=== PATIENT | female | born 1940 | race Caucasian/White ===

== ENCOUNTER 2022-05-16 07:36 | Inpatient (IN) | payer MEDICARE ==
[2022-05-15 14:03] VITALS: BMI 24.3
[2022-05-16] MEDS ORDERED: Tranexamic Acid 1,000 MG/10 ML VIAL ONE (08:15)
[2022-05-16] MEDS ORDERED: Levofloxacin 500 mg/D5W 100 ml Premix Bag ONE (08:15)
[2022-05-16] MEDS ORDERED: Sodium Chloride 0.9% 100 ML ONE (08:15)
[2022-05-16] MEDS ORDERED: Vancomycin 1 GM/200 ML BAG ONE (08:16)
[2022-05-16] MEDS ORDERED: Midazolam HCl 2 mg/2 ml Vial ONE (08:51)
[2022-05-16] MEDS ORDERED: Fentanyl 100 MCG/2 ML VIAL ONE (08:51)
[2022-05-16] MEDS ORDERED: Scopolamine 1.5 mg/72 hour Patch ONE (09:00)
[2022-05-16] MEDS ORDERED: Bupivacaine PF 0.5% 30 ML VIAL ONE (09:31)
[2022-05-16 09:38] LABS: PTT 29.2 sec (22.9-36.1); Prothrombin Time 12.8 sec (12.0-14.7)
[2022-05-16] MEDS ORDERED: fentaNYL Citrate/PF 100 MCG/2 ML SYRINGE ONE (09:39)
[2022-05-16] MEDS ORDERED: Ropivacaine 0.5% HCl/PF (150 MG/30 ML VIAL) ONE (09:41)
[2022-05-16] MEDS ORDERED: Propofol 500 MG/50 ML VIAL ONE (09:41)
[2022-05-16] MEDS ORDERED: Zolpidem Tartrate 5 MG TAB PO PRN ×2 (09:42→10:45)
[2022-05-16] MEDS ORDERED: Ondansetron PF 4 MG/2 ML Vial IVP PRN ×2 (09:42→10:45)
[2022-05-16] MEDS ORDERED: traMADol HCl 50 MG TAB PO PRN ×4 (09:42→10:45)
[2022-05-16] MEDS ORDERED: diphenhydrAMINE 25 MG CAP PO PRN (09:42)
[2022-05-16] MEDS ORDERED: Promethazine HCl 25 MG/ML VIAL IM PRN ×2 (09:42→10:45)
[2022-05-16] MEDS ORDERED: Acetaminophen 325 MG TAB PO PRN (09:42)
[2022-05-16] MEDS ORDERED: Acetaminophen ER (8hr) 650 MG TAB PO PRN (09:45)
[2022-05-16] MEDS ORDERED: Phenylephrine 10 MG/ML VIAL ONE (10:05)
[2022-05-16] MEDS ORDERED: ePHEDrine 50 MG/ML VIAL ONE (10:05)
[2022-05-16] MEDS ORDERED: Lidocaine 1.5% w/Epi 1:200K 30 ML VIAL (Epid Use) ONE (10:05)
[2022-05-16] MEDS ORDERED: Ondansetron PF 4 MG/2 ML Vial ONE (10:05)
[2022-05-16] MEDS ORDERED: BUPIVACAINE 0.5% EPIDURAL SCH (10:45)
[2022-05-16] MEDS ORDERED: SODIUM CHLORIDE 0.9% EPIDURAL SCH (10:45)
[2022-05-16] MEDS ORDERED: Naloxone HCl 0.4 mg/ml Vial IVP PRN (10:45)
[2022-05-16] MEDS ORDERED: diphenhydrAMINE 50 MG/ML VIAL IM PRN (10:45)
[2022-05-16] MEDS ORDERED: diphenhydrAMINE 50 MG/ML VIAL IVP PRN (10:45)
[2022-05-16] MEDS ORDERED: Moisturizing Cream (Eucerin) 113 GM JAR TOP PRN (10:45)
[2022-05-16] MEDS ORDERED: Bupivacaine 0.25% 10 ML VIAL EPIDURAL PRN (10:45)
[2022-05-16] MEDS ORDERED: Naloxone HCl 0.4 mg/ml Vial IV PRN (10:45)
[2022-05-16] MEDS ORDERED: Promethazine HCl 25 MG SUPP PR PRN (10:45)
[2022-05-16] MEDS: Acetaminophen 500 MG TAB PO PRN (14:10)
[2022-05-16] MEDS ORDERED: Bupivacaine 0.25% HCL 30 ML VIAL ONE (14:45)
[2022-05-16] MEDS ORDERED: Morphine 4 MG/ML VIAL ONE (14:52)
[2022-05-16] MEDS ORDERED: Morphine 2 MG/ML VIAL SLOW IVP SCH (14:52)
[2022-05-16] MEDS ORDERED: Morphine 2 MG/ML VIAL SLOW IVP PRN (14:54)
[2022-05-16] MEDS: Sodium Chloride 0.9% 1,000 ML IV SCH (16:17)
[2022-05-16] MEDS: tiZANidine HCl 4 MG TAB PO SCH (17:20)
[2022-05-16] MEDS: Morphine Sulfate 100 MG in Dextrose 5% in Water 98 ML IV SCH (18:25)
[2022-05-16] MEDS ORDERED: Vancomycin 1 GM in Premix Bag 1 BAG IVPB SCH (20:00)
[2022-05-16] MEDS ORDERED: HYDROCHLOROTHIAZIDE PO SCH (21:00)
[2022-05-16] MEDS ORDERED: Non-Formulary Item 1 EACH (Lansoprazole [Prevacid] 15 MG Cap) PO SCH (21:00)
[2022-05-16] MEDS ORDERED: [UNRECOGNIZED DRUG - OTHER] PO SCH (21:00)
[2022-05-16] MEDS ORDERED: LISINOPRIL PO SCH (21:00)
[2022-05-16] MEDS: Lisinopril/Hydrochlorothiazide 20 mg/12.5 mg Tablet PO SCH (21:19)
[2022-05-16] MEDS: Senokot S 8.6-50 MG TAB PO SCH (21:23)
[2022-05-16] MEDS: Ferrous Gluconate 324 MG TAB PO SCH (21:24)
[2022-05-16] MEDS: Estradiol 1 MG TAB PO SCH (21:27)
[2022-05-16] MEDS: Aspirin 81 mg Enteric Coated Tablet PO SCH (21:29)
[2022-05-17] MEDS: tiZANidine HCl 4 MG TAB PO SCH ×5 (01:13→22:58)
[2022-05-17] MEDS: Sodium Chloride 0.9% 1,000 ML IV SCH ×4 (02:28→23:07)
[2022-05-17 05:24] LABS: Hemoglobin 11.6 g/dL (12.0-16.0); Mean Corpuscular HGB CONC 32.8 g/dL (32.0-36.0); Mean Corpuscular Hemoglobin 31.2 pg (27.0-31.0); Mean Corpuscular Volume 95.1 fL (78.0-98.0); Mean Platelet Volume 8.4 fL (7.4-10.4); Platelet Count 221 thou/uL (130-400); RBC Distribution Width 11.9 % (11.5-14.5); Red Blood Cell (RBC) Count 3.72 mill/uL (4.20-5.40); White Blood Cell (WBC) Count 8.5 thou/uL (4.8-10.8)
[2022-05-17] MEDS ORDERED: Cetirizine HCl 10 MG TAB PO SCH (09:00)
[2022-05-17] MEDS ORDERED: Cholecalciferol 1,000 UNITS (25 MCG) TAB PO SCH (09:00)
[2022-05-17] MEDS: Aspirin 81 mg Enteric Coated Tablet PO SCH ×2 (09:40→21:14)
[2022-05-17] MEDS: Levothyroxine Sodium 100 MCG TAB PO SCH (09:40)
[2022-05-17] MEDS: Loratadine 10 MG TAB PO SCH (09:40)
[2022-05-17] MEDS: Senokot S 8.6-50 MG TAB PO SCH ×3 (09:40→22:57)
[2022-05-17] MEDS: Cholecalciferol 1,000 UNITS (25 MCG) TAB PO SCH (09:40)
[2022-05-17] MEDS: Lisinopril/Hydrochlorothiazide 20 mg/12.5 mg Tablet PO SCH ×2 (09:40→21:14)
[2022-05-17] MEDS: Multivitamin W/ Minerals 1 TAB PO SCH (09:41)
[2022-05-17] MEDS: Ferrous Gluconate 324 MG TAB PO SCH ×2 (09:41→21:16)
[2022-05-17] MEDS: Liothyronine Sodium 25 MCG TAB PO SCH (10:02)
[2022-05-17] MEDS: Estradiol 1 MG TAB PO SCH (21:12)
[2022-05-17] MEDS: diphenhydrAMINE 25 MG CAP PO PRN (22:59)
[2022-05-18] MEDS: tiZANidine HCl 4 MG TAB PO SCH ×3 (06:01→18:15)
[2022-05-18] MEDS: Lisinopril/Hydrochlorothiazide 20 mg/12.5 mg Tablet PO SCH ×2 (10:27→21:04)
[2022-05-18] MEDS: Cholecalciferol 1,000 UNITS (25 MCG) TAB PO SCH (10:27)
[2022-05-18] MEDS: Senokot S 8.6-50 MG TAB PO SCH ×2 (10:27→21:03)
[2022-05-18] MEDS: Multivitamin W/ Minerals 1 TAB PO SCH (10:27)
[2022-05-18] MEDS: Levothyroxine Sodium 100 MCG TAB PO SCH (10:28)
[2022-05-18] MEDS: Ferrous Gluconate 324 MG TAB PO SCH ×2 (10:28→21:03)
[2022-05-18] MEDS: Aspirin 81 mg Enteric Coated Tablet PO SCH ×2 (10:28→21:04)
[2022-05-18] MEDS: Loratadine 10 MG TAB PO SCH (10:28)
[2022-05-18] MEDS ORDERED: Ketorolac Tromethamine 30 MG/ML VIAL ONE (14:59)
[2022-05-18] MEDS: Liothyronine Sodium 25 MCG TAB PO SCH (16:01)
[2022-05-18] MEDS: Morphine Sulfate 100 MG in Dextrose 5% in Water 98 ML IV SCH (16:02)
[2022-05-18] MEDS: Sodium Chloride 0.9% 1,000 ML IV SCH ×2 (16:02→21:45)
[2022-05-18] MEDS: Estradiol 1 MG TAB PO SCH (21:04)
[2022-05-19] MEDS: tiZANidine HCl 4 MG TAB PO SCH ×4 (00:30→18:09)
[2022-05-19] MEDS: Sodium Chloride 0.9% 1,000 ML IV SCH ×2 (06:27→18:11)
[2022-05-19] MEDS: Multivitamin W/ Minerals 1 TAB PO SCH (09:47)
[2022-05-19] MEDS: Lisinopril/Hydrochlorothiazide 20 mg/12.5 mg Tablet PO SCH ×2 (09:47→20:47)
[2022-05-19] MEDS: Senokot S 8.6-50 MG TAB PO SCH ×2 (09:47→20:49)
[2022-05-19] MEDS: Loratadine 10 MG TAB PO SCH (09:47)
[2022-05-19] MEDS: Levothyroxine Sodium 100 MCG TAB PO SCH (09:47)
[2022-05-19] MEDS: Ferrous Gluconate 324 MG TAB PO SCH ×2 (09:48→20:50)
[2022-05-19] MEDS: Aspirin 81 mg Enteric Coated Tablet PO SCH ×2 (09:48→20:50)
[2022-05-19] MEDS: Cholecalciferol 1,000 UNITS (25 MCG) TAB PO SCH (09:48)
[2022-05-19] MEDS: Liothyronine Sodium 25 MCG TAB PO SCH (09:49)
[2022-05-19] MEDS ORDERED: Sodium Chloride 0.9% 500 ML IV SCH (16:45)
[2022-05-19] MEDS: fentaNYL 50 mcg/hour Patch TD SCH (18:09)
[2022-05-19] MEDS ORDERED: Simethicone Chewable 80 MG TAB PO PRN (20:35)
[2022-05-19] MEDS: Estradiol 1 MG TAB PO SCH (20:49)
[2022-05-20] MEDS: tiZANidine HCl 4 MG TAB PO SCH ×3 (00:14→14:30)
[2022-05-20] MEDS: Acetaminophen 500 MG TAB PO PRN ×3 (01:58→22:40)
[2022-05-20] MEDS: Sodium Chloride 0.9% 1,000 ML IV SCH ×3 (06:06→23:45)
[2022-05-20] MEDS: Senokot S 8.6-50 MG TAB PO SCH ×2 (09:51→20:04)
[2022-05-20] MEDS: Lisinopril/Hydrochlorothiazide 20 mg/12.5 mg Tablet PO SCH ×2 (09:51→20:04)
[2022-05-20] MEDS: Multivitamin W/ Minerals 1 TAB PO SCH (09:55)
[2022-05-20] MEDS: Aspirin 81 mg Enteric Coated Tablet PO SCH ×2 (09:55→20:04)
[2022-05-20] MEDS: Loratadine 10 MG TAB PO SCH (09:56)
[2022-05-20] MEDS: Levothyroxine Sodium 100 MCG TAB PO SCH (09:57)
[2022-05-20] MEDS: Ferrous Gluconate 324 MG TAB PO SCH ×2 (09:57→20:03)
[2022-05-20] MEDS: Liothyronine Sodium 25 MCG TAB PO SCH (09:57)
[2022-05-20] MEDS: Cholecalciferol 1,000 UNITS (25 MCG) TAB PO SCH (09:57)
[2022-05-20] MEDS: traMADol HCl 50 MG TAB PO SCH ×3 (10:48→23:43)
[2022-05-20] MEDS ORDERED: tiZANidine HCl 4 MG TAB PO PRN (16:51)
[2022-05-20] MEDS: tiZANidine HCl 4 MG TAB PO PRN (20:03)
[2022-05-20] MEDS: Estradiol 1 MG TAB PO SCH (20:04)
[2022-05-21] MEDS: tiZANidine HCl 4 MG TAB PO PRN ×2 (04:43→20:00)
[2022-05-21] MEDS: Acetaminophen 500 MG TAB PO PRN ×3 (04:43→20:00)
[2022-05-21] MEDS: Liothyronine Sodium 25 MCG TAB PO SCH (09:44)
[2022-05-21] MEDS: Lisinopril/Hydrochlorothiazide 20 mg/12.5 mg Tablet PO SCH ×2 (09:45→20:00)
[2022-05-21] MEDS: Cholecalciferol 1,000 UNITS (25 MCG) TAB PO SCH (09:46)
[2022-05-21] MEDS: Levothyroxine Sodium 100 MCG TAB PO SCH (09:46)
[2022-05-21] MEDS: Ferrous Gluconate 324 MG TAB PO SCH ×2 (09:46→20:00)
[2022-05-21] MEDS: Aspirin 81 mg Enteric Coated Tablet PO SCH ×2 (09:46→20:00)
[2022-05-21] MEDS: Multivitamin W/ Minerals 1 TAB PO SCH (09:46)
[2022-05-21] MEDS: traMADol HCl 50 MG TAB PO SCH ×2 (09:47→15:28)
[2022-05-21] MEDS: Loratadine 10 MG TAB PO SCH (09:47)
[2022-05-21] MEDS: Senokot S 8.6-50 MG TAB PO SCH ×2 (09:47→20:00)
[2022-05-21] MEDS: Sodium Chloride 0.9% 1,000 ML IV SCH ×2 (09:47→20:05)
[2022-05-21] MEDS: diphenhydrAMINE 25 MG CAP PO PRN (20:00)
[2022-05-21] MEDS: Estradiol 1 MG TAB PO SCH (20:00)
[2022-05-22] MEDS: traMADol HCl 50 MG TAB PO SCH ×2 (00:30→09:13)
[2022-05-22] MEDS: Sodium Chloride 0.9% 1,000 ML IV SCH (05:45)
[2022-05-22] MEDS: Lisinopril/Hydrochlorothiazide 20 mg/12.5 mg Tablet PO SCH (09:12)
[2022-05-22] MEDS: Aspirin 81 mg Enteric Coated Tablet PO SCH (09:12)
[2022-05-22] MEDS: Cholecalciferol 1,000 UNITS (25 MCG) TAB PO SCH (09:12)
[2022-05-22] MEDS: Levothyroxine Sodium 100 MCG TAB PO SCH (09:12)
[2022-05-22] MEDS: Senokot S 8.6-50 MG TAB PO SCH (09:13)
[2022-05-22] MEDS: Multivitamin W/ Minerals 1 TAB PO SCH (09:13)
[2022-05-22] MEDS: Liothyronine Sodium 25 MCG TAB PO SCH (09:18)
[2022-05-22] MEDS: Ferrous Gluconate 324 MG TAB PO SCH (09:19)
[2022-05-22] MEDS: Loratadine 10 MG TAB PO SCH (09:19)
[2022-05-22] MEDS: tiZANidine HCl 4 MG TAB PO PRN (12:08)
[2022-05-22 12:25] VITALS: BP 174/67; TEMP 97.4
[2022-05-22] MEDS ORDERED: Polyethylene Glycol 3350 17 GM Packet PO SCH (13:00)
[2022-05-22] MEDS ORDERED: fentaNYL 50 mcg/hour Patch TD SCH (13:00)
[2022-05-22] MEDS: fentaNYL 50 mcg/hour Patch TD SCH (13:04)
== END 2022-05-22 14:27 | disposition home or self-care (01) | DRG 470 ==
LOC: SDC 07:36 → OBSVTOIN 09:46 → SJJU 09:46
PROVIDERS: ADMIT Orthopaedic Surgery; ATTEND Orthopaedic Surgery
PROC: 0SR90JA Replacement of Right Hip Joint with Synthetic Substitute, Uncemented, Open Approach (ICD-10-PCS; principal; 2022-05-16)
DX: M16.11 Unilateral primary osteoarthritis, right hip (principal); M25.751 Osteophyte, right hip; I10 Essential (primary) hypertension; E03.9 Hypothyroidism, unspecified; K21.9 Gastro-esophageal reflux disease without esophagitis; Z88.0 Allergy status to penicillin; Z88.5 Allergy status to narcotic agent; Z88.2 Allergy status to sulfonamides; Z88.8 Allergy status to other drugs, medicaments and biological substances; Z88.1 Allergy status to other antibiotic agents; Z90.710 Acquired absence of both cervix and uterus; Z90.49 Acquired absence of other specified parts of digestive tract
CPT/HCPCS: 36415; 85027; 85610; 85730; C1776; J1200; J1956; J2001; J2250; J2270; J2370; J2405; J2704; J2795; J3010; J3370; J3490; J7050; J7070; S0020